=== PATIENT | male | born 1980 | race Caucasian/White ===

== ENCOUNTER 2017-05-08 09:23 | Emergency (ER) | payer MEDICAID ==
--- NOTE | 2017-05-08 10:56 | EDM.PDOC ---
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 this may be contributing to his pain he is really interested pain medication and has not followed up with his primary or his orthopedic surgeon denies any trauma Left Knee Pain Score (Numeric/FACES): 5 - Related Data Allergies Allergy/AdvReac Type Severity Reaction Status Date / Time No Known Allergies Allergy Verified 05/08/17 10:15 Home Meds: Home Meds FLUoxetine [PROzac] 20 mg PO DAILY 05/08/17 [History] Past Medical History Other Musculoskeletal History: L KNEE REPAIR 7 YEARS AGO, CHRONIC PAIN Social & Family History - Tobacco Use Smoking Status *Q: Former Smoker Used Tobacco, but Quit: Yes Month Tobacco Last Used: UNKNOWN, 4 YEARS AGO - Caffeine Use Caffeine Use: Reports: Coffee, Energy Drinks, Soda - Recreational Drug Use Recreational Drug Use: No Review of Systems - Review of Systems Review Of Systems: See Below Musculoskeletal: Reports: Joint Pain ED EXAM, GENERAL - Physical Exam Exam: See Below Free Text/Narrative:: Examination of the knee he does have extensive surgical scars both medial and lateral of the knee I don't appreciate any erythema there is no edema there is no specific joint line tenderness no pain with varus or valgus maneuvers Matias 's is negative Course - Vital Signs Last Recorded V/S: Last Vital Signs Temp 96.3 F 05/08/17 10:16 Pulse 65 05/08/17 10:16 Resp 16 05/08/17 10:16 BP 140/69 05/08/17 10:16 Pulse Ox 95 05/08/17 10:16 Departure - Departure Time of Disposition: 10:55 Disposition: Home, Self-Care 01 Condition: Fair Clinical Impression: Left knee pain Qualifiers: Chronicity: chronic Qualified Code(s): M25.562 - Pain in left knee; G89.29 - Other chronic pain - Discharge Information Forms: ED Department Discharge Additional Instructions: Use ibuprofen for baseline pain control, use hydrocodone for breakthrough pain, Please followup with your primary care provider in 3-5 days if not better, please call return to the emergency department with worsening of symptoms. - Assessment/Plan Plan: Assessment Acuity = acute Site and laterality = left knee pain Etiology = probably secondary to repetitive motion long standing on concrete Manifestations = none Location of injury = Home Lab values = none Plan Prescription given for hydrocodone total #4 tablets from follow-up with his primary care this week for further evaluation Patient was in agreement with the plan all questions were answered, they were instructed to return to the emergency department or call for worsening symptoms. This note was dictated using [employer] voice recognition software please call with any questions.
[2017-05-08 11:10] VITALS: BP 130/79
== END 2017-05-08 11:10 | disposition home or self-care (01) ==
LOC: JP.ED 09:23
DX: G89.29 Other chronic pain (principal); M25.562 Pain in left knee; Z87.891 Personal history of nicotine dependence; Z79.899 Other long term (current) drug therapy; Z98.890 Other specified postprocedural states
CPT/HCPCS: 99283

== ENCOUNTER 2017-07-31 05:58 | Day surgery (SDC) | payer MEDICAID ==
[2017-07-31] MEDS ORDERED: Dextrose 5%-Lactated Ringers 1,000 ML IV SCH (06:30)
[2017-07-31] MEDS ORDERED: fentaNYL 100 MCG/2 ML SDV ONE (06:57)
[2017-07-31] MEDS ORDERED: Propofol 200 MG/20 ML SDV ONE (06:57)
[2017-07-31] MEDS ORDERED: Midazolam 1 MG/ML 2 ML SDV ONE (06:58)
[2017-07-31] MEDS ORDERED: Glycopyrrolate 0.2 MG/ML 2 ML SDV IVPUSH ONE (07:15)
[2017-07-31 08:37] VITALS: BP 114/78
--- NOTE | 2017-08-07 19:06 | OR ---
DATE OF PROCEDURE: 07/31/2017 PREOPERATIVE DIAGNOSIS: Severe gastroesophageal reflux disease. POSTOPERATIVE DIAGNOSES: 1. Small hiatal hernia associated with actively ulcerated gastroesophageal reflux disease. 2. Mild antral gastritis and duodenitis. OPERATIVE PROCEDURES: Esophagogastroduodenoscopy with: 1. Biopsy of esophagogastric junction for histologic evaluation. 2. Biopsies of antrum for CLOtest. ANESTHESIA: IV sedation. INDICATION FOR PROCEDURE: This is a 36-year-old presenting with quite severe gastroesophageal reflux disease, he has daily episodes of quite marked heartburn along with emesis at times with bending over or lying on his back. With this, he has woken up sometimes of some aspiration type events coughing up what would be aspirated esophageal contents. He presently is on omeprazole 40 mg a day for sometime. The plan is to proceed with upper GI endoscopy with biopsies as indicated. Probably he does not have any dysphagia per se with there not being a clinical suggestion of esophageal dysmotility. Potential risks of the procedure including bleeding and perforation were discussed, and the patient wishes to proceed. DETAILS OF PROCEDURE: The patient was taken to the operating room and placed in the left lateral decubitus position. IV sedation was administered, after which the upper GI endoscope was passed orally through the esophagus and into the stomach with retroflexion view of the fundus, thereafter through the pyloric channel and into the junction of the third and fourth portions of the duodenum. Findings included normal hypopharynx, larynx, and upper esophageal sphincter. Esophageal body was grossly unremarkable with there being no dilation present, good peristalsis was evident during the course of the exam. At the EG junction, there was a small hiatal hernia, but essentially wide open esophagogastric junction. This was visualized from the distal esophagus. This was associated with multiple ulcers covered with some fibrinous exudate in the distal esophagus. Apart from that, the stomach had some mild antral gastritis with inflammation extending into the proximal duodenum beyond the duodenal bulb with duodenitis then resolved. At this point, biopsies were obtained from the antrum and sent for CLOtest for H. pylori. Multiple biopsies were obtained from esophagogastric junction, sent for histologic evaluation. No bleeding from the biopsy sites was seen and the procedure then concluded. The patient appeared to have quite severe case of gastroesophageal reflux disease to the point that he has been putting his pulmonary status at risk with the ongoing symptoms and episodes of aspiration. We will see the patient back tomorrow regarding surgical treatment, specifically Mary Jo fundoplication. Raymond Randall MD /[id number]
== END 2017-07-31 08:39 | disposition home or self-care (01) ==
LOC: JP.SDS 05:58
PROVIDERS: ATTEND Surgery
DX: K29.50 Unspecified chronic gastritis without bleeding (principal); K20.9 Esophagitis, unspecified; K44.9 Diaphragmatic hernia without obstruction or gangrene; F41.9 Anxiety disorder, unspecified; E78.00 Pure hypercholesterolemia, unspecified; E66.9 Obesity, unspecified; F32.9 Major depressive disorder, single episode, unspecified; Z87.891 Personal history of nicotine dependence; Z68.30 Body mass index [BMI] 30.0-30.9, adult
CPT/HCPCS: 43239; 87081; 88305; J2250; J2704; J3010; J7042; J3490

== ENCOUNTER 2017-08-02 08:53 | Inpatient (IN) | payer MEDICAID ==
[~2017-08-02 08:53] MED LIST: Dexamethasone 4 MG/ML SDV ONE; Glycopyrrolate 0.2 MG/ML 5 ML MDV ONE; Midazolam 1 MG/ML 2 ML SDV ONE; Neostigmine Methylsulfate 1 MG/ML 5 ML Syringe ONE; Ondansetron 4 MG/2 ML SDV ONE; Propofol 200 MG/20 ML SDV ONE; Rocuronium 50 MG/5 ML Vial ONE; Succinylcholine 200 MG/10 ML MDV ONE
[2017-08-02] MEDS ORDERED: Dextrose 5%-Lactated Ringers 1,000 ML IV SCH (09:30)
[2017-08-02] MEDS ORDERED: ceFAZolin 2 GM in Sodium Chloride 0.9% 50 ML IV ONE (10:30)
[2017-08-02] MEDS ORDERED: Naloxone 0.4 MG/ML SDV IVPUSH PRN (12:13)
[2017-08-02] MEDS ORDERED: HYDROmorphone/Normal Saline 15 MG/30 ML PCA IV PRN (12:13)
[2017-08-02] MEDS ORDERED: fentaNYL 100 MCG/2 ML SDV ONE (13:17)
[2017-08-02] MEDS ORDERED: Ondansetron 4 MG/2 ML SDV IVPUSH PRN (16:41)
[2017-08-02] MEDS: Ibuprofen 400 MG Tab PO SCH ×2 (17:03→21:41)
[2017-08-02] MEDS: Pantoprazole 40 MG Vial IV SCH (17:03)
[2017-08-02] MEDS: Metoclopramide 10 MG/2 ML SDV IVPUSH SCH ×2 (17:03→21:41)
[2017-08-02] MEDS: ceFAZolin 2 GM in Sodium Chloride 0.9% 50 ML IV SCH (19:18)
[2017-08-02] MEDS: Dextrose 5%-Lactated Ringers 1,000 ML IV SCH (20:29)
[2017-08-03] MEDS: Dextrose 5%-Lactated Ringers 1,000 ML IV SCH ×2 (02:04→09:29)
[2017-08-03] MEDS ORDERED: diphenhydrAMINE 50 MG/ML SDV IVPUSH PRN (02:27)
[2017-08-03] MEDS ORDERED: diphenhydrAMINE 25 MG Cap PO PRN (02:28)
[2017-08-03] MEDS: Metoclopramide 10 MG/2 ML SDV IVPUSH SCH (04:22)
[2017-08-03] MEDS: ceFAZolin 2 GM in Sodium Chloride 0.9% 50 ML IV SCH ×2 (04:22→12:45)
[2017-08-03] MEDS: Ibuprofen 400 MG Tab PO SCH (05:41)
[2017-08-03] MEDS: FLUoxetine 20 MG Cap PO SCH (09:04)
[2017-08-03] MEDS ORDERED: Ondansetron 4 MG Tab.DIS PO PRN (09:24)
[2017-08-03] MEDS ORDERED: Acetaminophen/oxyCODONE 325-5 MG Tab PO PRN (09:32)
[2017-08-03] MEDS ORDERED: Ibuprofen 200 MG Tab PO SCH (10:00)
--- NOTE | 2017-08-03 12:25 | PN ---
DATE OF SERVICE: 08/03/2017 SUBJECTIVE: Luke is postop day #1 following a laparoscopic Mary Jo fundoplication. He is tolerating the clear liquid diet. Vital signs have been stable and he has been up ambulating. OBJECTIVE: GENERAL: Luke Kuo is a 36-year-old male. He is alert and oriented. VITAL SIGNS: TPR 97.9, 59, 15. Blood pressure 112/52. HEENT: Negative. NECK: Supple. HEART: Regular rate and rhythm. LUNGS: Clear. ABDOMEN: Dressings dry and intact. Abdominal binder is on. EXTREMITIES: Without peripheral edema. ASSESSMENT: Laparoscopic Mary Jo fundoplication. PLAN: 1. Full liquid diet. 2. Discontinue DISABILITY MANAGER and continuous pulse ox. 3. Discontinue ibuprofen. 4. Percocet 5/325 mg. 5. Decrease IV to 100 mL per hour. 6. Dressing off, may shower. 7. Dietary consult. 8. We will evaluate p.r.n. or in a.m. Elizabeth Fuentes PA-C /[id number]
[2017-08-03] MEDS: traMADol 50 MG Tab PO PRN ×3 (12:45→19:51)
[2017-08-03] MEDS: Pantoprazole 40 MG Vial IV SCH (16:02)
[2017-08-04] MEDS: traMADol 50 MG Tab PO PRN (00:56)
[2017-08-04 07:43] VITALS: BP 136/77
[2017-08-04] MEDS: FLUoxetine 20 MG Cap PO SCH (09:08)
[2017-08-04] MEDS ORDERED: Magnesium Hydroxide 400 MG/5 ML Susp 30 ML Cup PO ONE (09:30)
[2017-08-04] MEDS ORDERED: Magnesium Hydroxide 400 MG/5 ML Susp 30 ML Cup PO PRN (09:34)
--- NOTE | 2017-08-04 16:37 | DISCH ---
FINAL DIAGNOSES: 1. Gastroesophageal reflux disease refractory to medical management associated with large paraesophageal diaphragmatic hernia. 2. Mediastinal lipoma. 3. Soft tissue mass adjacent to the esophagogastric junction. 4. History of anxiety and depression. 5. History of hyperlipidemia. 6. History of alcohol dependence. 7. History of opioid dependence. 8. Attention-deficit hyperactivity disorder with adjustment disorder. OPERATIVE PROCEDURES: Done on 08/02/2017; 1. Diagnostic laparoscopy with repair of paraesophageal diaphragmatic hernia with mesh and accompanying Mary Jo fundoplication. 2. Excision of mediastinal lipoma. 3. Excision of soft tissue mass adjacent to esophagogastric junction. HOSPITAL COURSE: This is a 36-year-old presenting with gastroesophageal reflux disease refractory to medical management. He had gross emesis frequently during the day despite ongoing omeprazole use. After the preoperative evaluation and discussion, the patient came for Mary Jo fundoplication which was done on the date of admission along with repair of the associated paraesophageal diaphragmatic hernia with mesh and excision of the mediastinal lipoma status post soft tissue mass that may be enlarged lymph node adjacent to esophagogastric junction which was also excised. Postoperatively, he has been little bit distended, but otherwise passing gas, has not moved his bowels as of yet. He will be discharged home with full-liquid diet for 2 weeks. We will give him some of milk of magnesia today as well as some doses to take home. DISCHARGE MEDICATIONS: Home medications plus tramadol 50-100 mg q.4 hours p.r.n. pain, #50 being written. He will be also instructed to stop his omeprazole in 1 week. He will be following up with Dr. Randall at [facility] on 08/15/2017.
--- NOTE | 2017-08-08 14:03 | OR ---
DATE OF PROCEDURE: 08/02/2017 PREOPERATIVE DIAGNOSIS: Gastroesophageal reflux disease refractory to medical management. POSTOPERATIVE DIAGNOSES: 1. Paraesophageal diaphragmatic hernia associated with gastroesophageal reflux disease refractory to medical management. 2. Mediastinal lipoma. 3. Soft tissue mass adjacent to the gastroesophageal junction. OPERATIVE PROCEDURES: Diagnostic laparoscopy with: 1. Repair of paraesophageal diaphragmatic hernia with Mary Jo fundoplication with mesh reinforcement (78282). 2. Excision of mediastinal lipoma (76116). 3. Excision of soft-tissue mass adjacent to the esophagogastric junction (15887). ANESTHESIA: General. MEASUREMENT AND SENSING TECHNICIAN: Elizabeth Fuentes PA-C and WADE Higgins. INDICATION FOR PROCEDURE: This is a 36-year-old presenting with progressively worsening gastroesophageal reflux symptoms. After preoperative evaluation and discussion, he wished to proceed with a Mary Jo fundoplication. Potential risks of the procedure including bleeding, infection, injury to the underlying viscera, problems with fundoplication, such as dysphagia, gas-bloat syndrome, disorders of gastric emptying rate, as well as possible incomplete relief of reflux symptoms were gone over, possibility of sometimes needing to revise these for persistent dysphasia was likewise reviewed, and the remote possibility of cardiopulmonary, septic, or hemorrhagic complications leading to were also gone over, and the patient wishes to proceed. DETAILS OF PROCEDURE: The patient was taken to the operating room and placed in a supine position. After general endotracheal anesthesia was induced, she was converted to a lithotomy position. Mccall catheter was inserted, after which the abdomen was prepped and draped. At 15 cm inferior, 5 cm left of xiphoid process, a transverse incision was made and the peritoneal cavity entered under direct vision with an Optiview trocar and inflated to 15 mmHg pressure with CO2. Laparoscope was then reinserted. No underlying trocar insertion site injuries were seen. Following this, 4 additional trocars were placed across the upper and mid abdomen, and general exploration was undertaken. Upon elevation of the liver, the patient was noted to have a significant paraesophageal component of the diaphragmatic hernia. Hernia was overall fairly large and contained some perigastric fat with a portion of the fundus and a tongue of omentum extending into the plane anterior to the course of the esophagus. This was reflected downward and the peritoneum overlying it incised and from there the peritoneum incised down along the crura on each side. Care was taken to avoid injury to the nearby vagus nerves. This then allowed dissection of the esophagus away from the crura on each side and then through the retroesophageal region. A Northridge drain was placed around that area, and this facilitated dissection such that roughly 4 to 5 cm of intra-abdominal esophageal length was achieved. During the course of the dissection, two additional findings were noted that would be a mediastinal lipoma, which was present posterior to the esophagus within the mediastinum. This was excised in 2 segments and then there was also a soft tissue mass, which may have been an enlarged lymph node to the left of the esophagogastric junction. This measured around 2.5 to 3 cm in size. Both of these were excised and sent as separate pathologic specimens. After this point, the crural repair was accomplished with some 0 Ethibond sutures reinforced with PTFE pledgets. The defect was large enough that it was felt a mesh-type replacement would be warranted. Phasix ST mesh was then cut such that it lay across crural repair posteriorly then roughly skilled nursing up along the sides of the esophagus and overlying the adjacent diaphragm. This was positioned with some titanium tacking screws. Beginning in the upper greater curvature of the body of the stomach, the omentum was divided off with Harmonic scalpel. This dissection then continued upward, finding the short gastric vessels including the highest and posterior short gastric vessels. This allowed satisfactory mobility of the fundus, which was retrieved through a retroesophageal window. The healthcare social worker then passed a guidewire orally through the length of the esophagus into the stomach. Over this, a 54-Togolese Savary dilator was positioned. A 3-stitch 2 cm fundoplication was then accomplished with 0 Ethibond sutures reinforced with PTFE pledgets. The fundoplication was then also tacked to the overlying diaphragm both on the right and left sides with 0 Ethibond sutures and pledgets as well. At that point, the dilator and wire were removed and the fundoplication was found to be satisfactorily loose and overall appeared to be well positioned. The trocars were sequentially removed with the fascia at the 12 mm sites closed with 0 Vicryl stitch and the skin with 4-0 Vicryl stitch in each of the locations. The patient was taken to the recovery room in satisfactory condition. There were no evident complications. Physician addictions counselor assistant, Elizabeth Fuentes, played an essential role in assisting in this case helping to position the patient, retract structures as needed, as well as suturing and cutting sutures when indicated. Her presence improved the patient's safety and decreased the operative time. Raymond Randall MD /[id number]
== END 2017-08-04 10:17 | disposition home or self-care (01) | DRG 328 ==
LOC: JP.SDS 08:53 → JP.SDSSCHI 08:53 → EDSTATUS 10:30 → JP.2SS 13:20
PROVIDERS: ADMIT Surgery; ATTEND Surgery
PROC: 0DV44ZZ Restriction of Esophagogastric Junction, Percutaneous Endoscopic Approach (ICD-10-PCS; principal; 2017-08-02)
PROC: 0BUT4JZ Supplement Diaphragm with Synthetic Substitute, Percutaneous Endoscopic Approach (ICD-10-PCS; 2017-08-02)
PROC: 0WBC4ZX Excision of Mediastinum, Percutaneous Endoscopic Approach, Diagnostic (ICD-10-PCS; 2017-08-02)
DX: K21.9 Gastro-esophageal reflux disease without esophagitis (principal); K44.9 Diaphragmatic hernia without obstruction or gangrene; F32.9 Major depressive disorder, single episode, unspecified; F11.21 Opioid dependence, in remission; E78.5 Hyperlipidemia, unspecified; D17.4 Benign lipomatous neoplasm of intrathoracic organs; F10.21 Alcohol dependence, in remission; F41.9 Anxiety disorder, unspecified
CPT/HCPCS: 36415; 80048; 85027; 88304; 88305; A9270-GY; C1781; C9113; J0330; J0690; J1100; J1170; J1200; J2250; J2405; J2704; J2710; J2765; J3010; J7042; J7050

== ENCOUNTER 2017-09-13 14:43 | Inpatient (IN) | payer MEDICAID ==
[2017-09-13] MEDS ORDERED: Ondansetron 4 MG/2 ML SDV IVPUSH PRN (16:27)
[2017-09-13] MEDS: Dextrose 5%-Lactated Ringers 1,000 ML IV SCH ×2 (16:46→23:14)
[2017-09-13] MEDS: Metoclopramide 10 MG/2 ML SDV IVPUSH SCH ×2 (17:08→23:59)
[2017-09-13] MEDS: Pantoprazole 40 MG Vial IV SCH (17:08)
[2017-09-13] MEDS ORDERED: Phenol/Sodium Phenolate Mouthwash 180 ML Bottle PO PRN (19:37)
[2017-09-13] MEDS ORDERED: Morphine PF 150 MG/30 ML PCA Syringe IV PRN (19:41)
[2017-09-13] MEDS ORDERED: LORazepam 2 MG/ML MDV IVPUSH PRN (19:42)
[2017-09-13] MEDS ORDERED: Naloxone 0.4 MG/ML SDV IVPUSH PRN (20:29)
--- NOTE | 2017-09-13 21:08 | PCM.HP ---
H&P History of Present Illness - General Date of Service: 09/13/17 Admit Problem/Dx: Admission Diagnosis/Problem Admission Diagnosis/Problem Partial small bowel obstruction Source of Information: Patient History Limitations: Reports: No Limitations - History of Present Illness Initial Comments - Free Text/Narative: Luke had a Lap Mary Jo Fundiplication on 08/02/17. He states he has dysphagia, heartburn, gastric reflux, nausea, vomiting and diarrhea for 3 weeks. He also reports a decrease in appetite. Luke reports a tight pressure like pain in his left upper and middle abdomen. He states he has no appetite, sleeps a lot and doesn't eat. When he throws up he states he doesn't throw up food it is usually foamy spit. Onset of Symptoms: Reports: Gradual Duration of Symptoms: Reports: Week(s): (3) Location: Reports: Abdomen Abdominal Pain Score (Numeric/FACES): 4 - Related Data Allergies/Adverse Reactions: Allergies Allergy/AdvReac Type Severity Reaction Status Date / Time No Known Allergies Allergy Verified 07/31/17 06:12 Home Medications: Home Meds FLUoxetine [PROzac] 20 mg PO DAILY 05/08/17 [History] Simvastatin [Zocor] 40 mg PO BEDTIME 07/30/17 [History] Acetaminophen [Tylenol] 650 mg PO Q4HR PRN 08/02/17 [History] Magnesium Hydroxide [Milk of Magnesia] 30 ml PO DAILY PRN #90 ml 08/04/17 [Rx] traMADol [Ultram] 50 mg PO Q6H PRN #50 tab 08/04/17 [Rx] Past Medical History HEENT History: Reports: Impaired Vision Cardiovascular History: Reports: Blood Clots/VTE/DVT, High Cholesterol Respiratory History: Reports: None Gastrointestinal History: Reports: Chronic Diarrhea Genitourinary History: Reports: None Musculoskeletal History: Reports: Fracture Other Musculoskeletal History: L KNEE REPAIR 7 YEARS AGO, CHRONIC PAIN Neurological History: Reports: Concussion Psychiatric History: Reports: ADD, Anxiety, Bipolar, Depression, Mood Swings, Schizophrenia Endocrine/Metabolic History: Reports: Obesity/BMI 30+ Hematologic History: Reports: None Immunologic History: Reports: None Oncologic (Cancer) History: Reports: None Dermatologic History: Reports: None - Infectious Disease History Infectious Disease History: Reports: Chicken Pox - Past Surgical History Head Surgeries/Procedures: Reports: None HEENT Surgical History: Reports: None Cardiovascular Surgical History: Reports: None Respiratory Surgical History: Reports: None GI Surgical History: Reports: None Endocrine Surgical History: Reports: None Neurological Surgical History: Reports: None Musculoskeletal Surgical History: Reports: Other (See Below) Other Musculoskeletal Surgeries/Procedures:: pins in and out left knee Oncologic Surgical History: Reports: None Dermatological Surgical History: Reports: None Social & Family History - Family History Family Medical History: Noncontributory - Tobacco Use Smoking Status *Q: Former Smoker Years of Tobacco use: 10 Packs/Tins Daily: 0.5 Used Tobacco, but Quit: No Month Tobacco Last Used: 10/2012 Second Hand Smoke Exposure: Yes - Caffeine Use Caffeine Use: Reports: Coffee, Soda - Alcohol Use Days Per Week of Alcohol Use: 3 Number of Drinks Per Day: 3 Total Drinks Per Week: 9 Date of Last Drink: 09/12/17 Time of Last Drink: 22:00 - Recreational Drug Use Recreational Drug Use: No H&P Review of Systems - Review of Systems: Review Of Systems: See Below General: Reports: Weakness, Fatigue, Decreased Appetite HEENT: Reports: No Symptoms Pulmonary: Reports: No Symptoms Cardiovascular: Reports: No Symptoms Gastrointestinal: Reports: Abdominal Pain, Diarrhea, Decreased Appetite, Difficulty Swallowing, Nausea Genitourinary: Reports: No Symptoms Musculoskeletal: Reports: No Symptoms Skin: Reports: No Symptoms Psychiatric: Reports: No Symptoms Neurological: Reports: No Symptoms Hematologic/Lymphatic: Reports: No Symptoms Immunologic: Reports: No Symptoms Exam - Exam Exam: See Below - Vital Signs Vital Signs: Last Vital Signs Temp 98.4 F 09/13/17 19:47 Pulse 59 L 09/13/17 19:47 Resp 16 09/13/17 19:47 BP 121/74 09/13/17 19:47 Pulse Ox 97 09/13/17 19:47 Weight: 218 lb - Exam Quality Assessment: DVT Prophylaxis General: Alert, Oriented, Cooperative, Mild Distress HEENT: PERRLA Neck: Supple Lungs: Clear to Auscultation, Normal Respiratory Effort Cardiovascular: Regular Rate, Regular Rhythm GI/Abdominal Exam: Soft, Tender (generalized in all 4 quadrants with most of the tenderness left mid and upper quadrants) (Male) Exam: Deferred Rectal (Males) Exam: Deferred Back Exam: Normal Inspection, Full Range of Motion Extremities: Normal Range of Motion, Pedal Edema Skin: Warm, Dry, Intact Neurological: Cranial Nerves Intact, Reflexes Equal Bilateral Neuro Extensive - Mental Status: Alert, Oriented x3, Normal Mood/Affect Neuro Extensive - Motor, Sensory, Reflexes: CN II-XII Intact Psychiatric: Alert, Normal Affect, Normal Mood *Q Meaningful Use (ADM) - VTE *Q VTE Criteria *Q: - Stroke *Q Stroke Criteria *Q: - AMI *Q AMI Criteria *Q: - Problem List (1) Partial small bowel obstruction SNOMED Code(s): 632159978 ICD Code: K56.600 - PARTIAL INTESTINAL OBSTRUCTION, UNSPECIFIED TO CAUSE Status: Acute Current Visit: Yes Problem List Initiated/Reviewed/Updated: Yes Orders Last 24hrs: Active Orders 24 hr Category Date Time Status Admission Diagnosis [ADT] Routine ADT 09/13/17 15:00 Ordered Activity as Tolerated [RC] .Routine Care 09/13/17 16:11 Active Communication Order [RC] STAT Care 09/13/17 20:29 Active Gastrointestinal Tube Mgmt [RC] ASDIRECTED Care 09/13/17 16:14 Active Intake and Output [RC] ASDIRECTED Care 09/13/17 16:16 Active Notify Provider [RC] PRN Care 09/13/17 20:29 Active SNOWBOARDER Record [RC] PER UNIT ROUTINE Care 09/13/17 20:29 Active Pulse Oximetry [RC] CONTINUOUS Care 09/13/17 20:29 Active Vital Signs [RC] Q4H Care 09/13/17 16:12 Active Nothing Per Oral Diet [DIET] Diet 09/13/17 Dinner Active Abdomen 1V Upright [CR] Urgent Exams 09/13/17 19:44 Taken Abdomen 2V AP Flat Upright [CR] DAILY Exams 09/14/17 04:00 Ordered Abdomen 2V AP Flat Upright [CR] DAILY Exams 09/15/17 04:00 Ordered Abdomen 2V AP Flat Upright [CR] DAILY Exams 09/16/17 04:00 Ordered Abdomen 2V AP Flat Upright [CR] DAILY Exams 09/17/17 04:00 Ordered CBC W/O DIFF,HEMOGRAM [HEME] Routine Lab 09/14/17 04:00 Ordered CLOSTRIDIUM DIFFICILE BY PCR [RM] Routine Lab 09/13/17 16:24 Uncollected COMPREHENSIVE METABOLIC PN,CMP [CHEM] Routine Lab 09/14/17 04:00 Ordered MAGNESIUM [CHEM] Routine Lab 09/14/17 04:00 Ordered PHOSPHORUS [CHEM] Routine Lab 09/14/17 04:00 Ordered Dextrose 5%-Lactated Ringers 1,000 ml Med 09/13/17 16:30 Active IV ASDIRECTED LORazepam [Ativan] Med 09/13/17 19:42 Active 0.5 - 1 mg IVPUSH Q2H PRN Metoclopramide [Reglan] Med 09/13/17 18:00 Active 10 mg IVPUSH Q6H Morphine PF [Morphine SNOWBOARDER 150 MG in 30 ML] Med 09/13/17 19:41 Active 150 mg IV ASDIRECTED PRN Naloxone [Narcan] Med 09/13/17 20:29 Active 0.4 mg IVPUSH Q2M PRN Ondansetron [Zofran] Med 09/13/17 16:27 Active 4 mg IVPUSH Q4H PRN Pantoprazole [ProTONIX IV] Med 09/13/17 18:00 Active 40 mg IV Q12H Phenol/Sodium Phenolate [Phenaseptic Liquid] Med 09/13/17 19:37 Active 0 ml PO Q2H PRN Medication Discontinuation Instructions [OM.PC] Stat Oth 09/13/17 20:29 Ordered NG [Nasogastric Orogastric Tube Insertion] [OM.PC] Oth 09/13/17 16:13 Ordered Routine SCD [Sequential Compression Device] [OM.PC] Routine Oth 09/13/17 16:19 Ordered Code Status [Resuscitation Status] Routine Resus Stat 09/13/17 16:09 Ordered Medication Orders Dextrose/Lactated Ringer's (Dextrose 5%-Lactated Ringers) 1,000 mls @ 150 mls/ hr IV ASDIRECTED RICK Last Admin: 09/13/17 16:46 Dose: 150 mls/hr Lorazepam (Ativan) 0.5 - 1 mg IVPUSH Q2H PRN PRN Reason: Nausea/Vomiting Last Admin: 09/13/17 20:22 Dose: 1 mg Metoclopramide HCl (Reglan) 10 mg IVPUSH Q6H RICK Last Admin: 09/13/17 17:08 Dose: 10 mg Morphine Sulfate (Morphine [facility] 150 Mg In 30 Ml) 150 mg IV ASDIRECTED PRN; Protocol PRN Reason: Pain Last Admin: 09/13/17 20:23 Dose: 150 mg Naloxone HCl (Narcan) 0.4 mg IVPUSH Q2M PRN PRN Reason: Respiratory Distress Ondansetron HCl (Zofran) 4 mg IVPUSH Q4H PRN PRN Reason: Nausea Last Admin: 09/13/17 18:31 Dose: 4 mg Pantoprazole Sodium (Protonix Iv) 40 mg IV Q12H RICK Last Admin: 09/13/17 17:08 Dose: 40 mg Phenol (Phenaseptic Liquid) 0 ml PO Q2H PRN PRN Reason: Sore Throat Assessment: Partial Small Bowel Obstruction Dehydration Nausea and Vomiting SP Laparoscopic Mary Jo Fundiplication Plan: Admit to Inpatient [facility] Plan of admission 3 nights and 3 days. Elizabeth Castillo 09/13/17
[2017-09-14] MEDS: Dextrose 5%-Lactated Ringers 1,000 ML IV SCH ×3 (05:42→19:35)
[2017-09-14] MEDS: Pantoprazole 40 MG Vial IV SCH ×2 (05:42→17:19)
[2017-09-14] MEDS: Metoclopramide 10 MG/2 ML SDV IVPUSH SCH ×3 (05:42→17:20)
[2017-09-14] MEDS ORDERED: Naloxone 0.4 MG/ML SDV IV PRN (07:20)
[2017-09-14] MEDS ORDERED: Morphine PF 150 MG/30 ML PCA Syringe IV PRN (08:00)
[2017-09-14] MEDS ORDERED: Iohexol 300 MG/ML 30 ML Bottle PO ONE (08:07)
[2017-09-14] MEDS ORDERED: Sodium Chloride 0.9% 10 ML Syringe FLUSH PRN (08:19)
[2017-09-14] MEDS ORDERED: Iopamidol 612 MG/ML 150 ML Bottle IV PRN (08:19)
--- NOTE | 2017-09-14 08:39 | CR ---
NG tube with the distal tip in the cardia of the stomach. Side-port is within the stomach. There is n o longer gaseous distention of the stomach.
--- NOTE | 2017-09-14 08:39 | CR ---
NG tube within the stomach. There is no gaseous distention. Scattered bowel gas within the large and small bowel. No evidence for dilatation.
[2017-09-14] MEDS ORDERED: Iohexol 647 MG/ML 10 ML SDV PO ONE (08:45)
--- NOTE | 2017-09-14 08:49 | PN ---
DATE OF SERVICE: 09/14/2017 SUBJECTIVE: Luke was admitted yesterday for partial small bowel obstruction versus gastroparesis SP lap Mary Jo fundoplication on 08/02/2017. He had the NG placed with 700 mL returned. He reports he is feeling better. He did have 1 bout of nausea, NG was repositioned and the nausea resolved. Vital signs have been stable. 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 REVIEW OF SYSTEMS: Remainder of review of systems negative for any pertinent positives and negatives. OBJECTIVE: GENERAL: Luke Kuo is a 37-year-old male. He is alert and orientated. NG in place. VITAL SIGNS: TPR is 97.4, 54, 16. Blood pressure 130/59. HEENT: Negative. NECK: Supple. HEART: Regular rate and rhythm. LUNGS: Clear. ABDOMEN: Soft, nontender. EXTREMITIES: Without peripheral edema. ASSESSMENT: Partial small bowel obstruction. PLAN: 1. Check CT of abdomen and pelvis with 100 mL of water-soluble contrast via NG and IV contrast now. 2. Call Raymond Randall M.D., with results. 3. Erythromycin 125 mg through NG tube q.i.d. 4. Good pulmonary toilet. 5. We will evaluate p.r.n. or in the a.m. Elizabeth Fuentes PA-C /[id number]
--- NOTE | 2017-09-14 09:15 | CT ---
CT abdomen and pelvis Total DLP 776. Findings: Lung bases are clear. Postsurgical change Mary Jo fundoplication. No focal fluid collection. NG tube with distal tip in the fundus of the stomach. No appreciable hiatal hernia. Adrenal glands a re unremarkable. Gallbladder within normal limits. Tiny hypodensity right kidney is too small to perlita acterize. Kidneys enhance normally. No dilated loops of small bowel. No dilated loops of large bowel. Bladder is unremarkable. No enlarged adenopathy. Appendix within normal limits. No acute osseous abn ormality. Impression: 1. Postsurgical changes Mary Jo fundoplication no focal fluid collection. No hiatal hernia.
[2017-09-14] MEDS ORDERED: methylPREDNISolone Sodium Succinate 125 MG/2 ML SDV IVPUSH ONE (10:30)
[2017-09-14] MEDS: Erythromycin Ethylsuccinate Susp 400 MG/5 ML 100 ML Bottle NGTUBE SCH ×3 (10:37→19:35)
[2017-09-14] MEDS: methylPREDNISolone Sodium Succinate 125 MG/2 ML SDV IVPUSH SCH (21:42)
[2017-09-15] MEDS: Metoclopramide 10 MG/2 ML SDV IVPUSH SCH ×2 (00:51→07:16)
[2017-09-15] MEDS: Erythromycin Ethylsuccinate Susp 400 MG/5 ML 100 ML Bottle NGTUBE SCH ×4 (01:00→21:04)
[2017-09-15] MEDS: Dextrose 5%-Lactated Ringers 1,000 ML IV SCH ×2 (02:14→09:10)
[2017-09-15] MEDS: Pantoprazole 40 MG Vial IV SCH ×2 (05:39→17:32)
[2017-09-15] MEDS: methylPREDNISolone Sodium Succinate 125 MG/2 ML SDV IVPUSH SCH ×2 (09:33→21:04)
[2017-09-15] MEDS: FLUoxetine 20 MG Cap PO SCH (09:33)
[2017-09-15] MEDS: traMADol 50 MG Tab PO PRN ×2 (12:00→18:02)
[2017-09-15] MEDS: Metoclopramide 10 MG Tab PO SCH ×2 (12:11→17:24)
[2017-09-15] MEDS ORDERED: Zolpidem 5 MG Tab PO PRN (18:15)
[2017-09-16] MEDS: Metoclopramide 10 MG Tab PO SCH ×2 (00:37→06:07)
[2017-09-16] MEDS: Erythromycin Ethylsuccinate Susp 400 MG/5 ML 100 ML Bottle NGTUBE SCH ×2 (03:56→07:38)
[2017-09-16] MEDS: Pantoprazole 40 MG Vial IV SCH (06:10)
[2017-09-16 07:27] VITALS: BP 110/54
[2017-09-16] MEDS: methylPREDNISolone Sodium Succinate 125 MG/2 ML SDV IVPUSH SCH (09:08)
[2017-09-16] MEDS: FLUoxetine 20 MG Cap PO SCH (09:08)
--- NOTE | 2017-09-16 11:31 | PN ---
DATE OF SERVICE: 09/15/2017 The patient has been afebrile with stable vital signs. NG output has been relatively scant and I think we will get that out today. We will try a full-liquid diet. We will switch the Reglan over to oral form, in addition to the oral erythromycin, and if he does okay overnight, I will let him be discharged home tomorrow. We will check an abdominal x-ray tomorrow just to see if there is much in the way of gastric distention. Raymond Randall MD /[id number]
--- NOTE | 2017-09-17 11:06 | CR ---
Abdomen 2V AP Flat Upright HISTORY: Small bowel obstruction. COMPARISON: CT scan 09/14/2017. FINDINGS: NG tube just reaches the proximal stomach. No dilated loops of small bowel or large bowel s een.
--- NOTE | 2017-09-17 11:07 | CR ---
Abdomen 2V AP Flat Upright HISTORY: Abdominal pain. COMPARISON: 09/15/2017. FINDINGS: NG tube has been removed. No evidence for bowel obstruction or free air.
--- NOTE | 2017-09-17 11:22 | DISCH ---
FINAL DIAGNOSES: 1. Impaired gastric emptying status post Mary Jo fundoplication. 2. Chronic knee pain. 3. History of depression. OPERATIVE PROCEDURES: None. HOSPITAL COURSE: This is a 37-year-old status post a Mary Jo fundoplication on 08/02/2017. He had been doing fairly well and then developed problems with abdominal bloating and nausea. He was unable to vomit. A nasogastric tube was placed, which resulted in prompt relief of the symptoms. The patient was then started on erythromycin and Reglan, and then IV Solu-Medrol to decrease some edema at the recent Mary Jo fundoplication as well as augmenting gastric emptying. With this, the NG tube was then removed yesterday. He was started on a full liquid diet and then he tolerated that well. He will be discharged home at this point with instructions to use a soft solid diet, backing down on liquids if he is still having problems with dysphagia. Otherwise, we will send him home with 3 additional Ultram, which he has been taking intermittently for pain; erythromycin 125 mg p.o. t.i.d., and Reglan 10 mg p.o. t.i.d. both #90, with refill x1, and to be taken before meals; and then Medrol Dosepak to start tomorrow. The patient will be starting work at a [employer] in [place] a week from Sunday, so we will see him this coming Sunday to make sure we are going okay with regard to his overall status. The followup appointment will be with Dr. Randall at [facility] on 09/19/2017, at 9:30 a.m.
== END 2017-09-16 11:00 | disposition home or self-care (01) | DRG 392 ==
LOC: JP.2SS 14:43
PROVIDERS: ADMIT Surgery; ATTEND Surgery
DX: K30 Functional dyspepsia (principal); Z98.890 Other specified postprocedural states; E86.0 Dehydration; H54.7 Unspecified visual loss; Z86.718 Personal history of other venous thrombosis and embolism; E78.00 Pure hypercholesterolemia, unspecified; Z87.891 Personal history of nicotine dependence; M25.569 Pain in unspecified knee; Z87.898 Personal history of other specified conditions
CPT/HCPCS: 36415; 74000; 74000-26; 74020; 74020-26; 74177; 74177-26; 80053; 83735; 84100; 85027; 94762; A9270-GY; C9113; J2060; J2270; J2405; J2765; J2930; J7030; J7042; J7050

== ENCOUNTER 2017-12-02 09:43 | Emergency (ER) | payer MEDICAID ==
[2017-12-02 10:06] VITALS: BP 132/81
[2017-12-02] MEDS ORDERED: Ondansetron 4 MG Tab.DIS PO ONE (10:23)
[2017-12-02] MEDS ORDERED: Bisacodyl 10 MG Supp RECTAL ONE (10:23)
--- NOTE | 2017-12-02 10:29 | EDM.PDOC ---
ED HPI GENERAL MEDICAL PROBLEM - General Chief Complaint: Gastrointestinal Problem Stated Complaint: GAGGING Time Seen by Provider: 12/02/17 10:15 Source of Information: Reports: Patient, Old Records, RN History Limitations: Reports: No Limitations - History of Present Illness INITIAL COMMENTS - FREE TEXT/NARRATIVE: 37 yo male comes to the ER with constipation and mild nausea for a couple weeks. Eating and drinking normally. No fever. Last BM about 3 days ago. Has not contacted his provider about this. Has a pHx of a lap Mary Jo. Onset: Gradual Onset Date: 11/21/17 Duration: Week(s):, Waxing/Waning Location: Reports: Abdomen Quality: Reports: Sharp (intermittent, mainly on the sides of his abdomen) Severity: Moderate Improves with: Reports: Other (unknown) Worsens with: Reports: Other (uncertain) Context: Reports: Other (constipation for a few weeks) Associated Symptoms: Reports: Nausea/Vomiting (no vomiting). 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 (see below) (none) Right Upper Abdominal Pain Score (Numeric/FACES): 3 - Related Data Allergies Allergy/AdvReac Type Severity Reaction Status Date / Time No Known Allergies Allergy Verified 12/02/17 10:11 Home Meds: Home Meds FLUoxetine [PROzac] 20 mg PO DAILY 05/08/17 [History] Acetaminophen [Tylenol] 650 mg PO Q4HR PRN 08/02/17 [History] Magnesium Hydroxide [Milk of Magnesia] 30 ml PO DAILY PRN #90 ml 08/04/17 [Rx] Past Medical History HEENT History: Reports: Impaired Vision Cardiovascular History: Reports: Blood Clots/VTE/DVT, High Cholesterol Respiratory History: Reports: None Gastrointestinal History: Reports: Chronic Diarrhea Genitourinary History: Reports: None Musculoskeletal History: Reports: Fracture Other Musculoskeletal History: L KNEE REPAIR 7 YEARS AGO, CHRONIC PAIN Neurological History: Reports: Concussion Psychiatric History: Reports: ADD, Anxiety, Bipolar, Depression, Mood Swings, Schizophrenia Endocrine/Metabolic History: Reports: Obesity/BMI 30+ Hematologic History: Reports: None Immunologic History: Reports: None Oncologic (Cancer) History: Reports: None Dermatologic History: Reports: None - Infectious Disease History Infectious Disease History: Reports: Chicken Pox - Past Surgical History Head Surgeries/Procedures: Reports: None HEENT Surgical History: Reports: None Cardiovascular Surgical History: Reports: None Respiratory Surgical History: Reports: None GI Surgical History: Reports: None, Bariatric Procedure Endocrine Surgical History: Reports: None Neurological Surgical History: Reports: None Musculoskeletal Surgical History: Reports: Other (See Below) Other Musculoskeletal Surgeries/Procedures:: pins in and out left knee Oncologic Surgical History: Reports: None Dermatological Surgical History: Reports: None Social & Family History - Family History Family Medical History: Noncontributory - Tobacco Use Smoking Status *Q: Unknown Ever Smoked Years of Tobacco use: 10 Packs/Tins Daily: 0.5 Used Tobacco, but Quit: No Month Tobacco Last Used: 10/2012 Second Hand Smoke Exposure: Yes - Caffeine Use Caffeine Use: Reports: Coffee, Soda - Alcohol Use Days Per Week of Alcohol Use: 3 Number of Drinks Per Day: 3 Total Drinks Per Week: 9 - Recreational Drug Use Recreational Drug Use: No ED ROS GENERAL - Review of Systems Review Of Systems: See Below Constitutional: Reports: No Symptoms HEENT: Reports: No Symptoms Respiratory: Reports: No Symptoms Cardiovascular: Reports: No Symptoms Endocrine: Reports: No Symptoms GI/Abdominal: Reports: No Symptoms : Reports: No Symptoms Musculoskeletal: Reports: No Symptoms Skin: Reports: No Symptoms ED EXAM, GI/ABD - Physical Exam Exam: See Below Exam Limited By: No Limitations General Appearance: Alert, WD/WN, No Apparent Distress Eyes: Bilateral: Normal Appearance, EOMI Ears: Normal External Exam, Normal Canal, Hearing Grossly Normal, Normal TMs Nose: Normal Inspection, Normal Mucosa, No Blood Throat/Mouth: Normal Inspection, Normal Lips, Normal Teeth, Normal Oropharynx, Normal Voice, No Airway Compromise Head: Atraumatic, Normocephalic Neck: Normal Inspection Respiratory/Chest: No Respiratory Distress, Lungs Clear, Normal Breath Sounds, No Accessory Muscle Use Cardiovascular: Regular Rate, Rhythm GI/Abdominal Exam: Normal Bowel Sounds, Soft, Non-Tender, No Distention Back Exam: Normal Inspection. No: CVA Tenderness (R), CVA Tenderness (L) Extremities: Normal Inspection, Normal Range of Motion, Non-Tender, No Pedal Edema Neurological: Alert, Oriented, CN II-XII Intact, Normal Cognition, No Motor/ Sensory Deficits Psychiatric: Normal Affect, Normal Mood Skin Exam: Warm, Dry, Intact, Normal Color, No Rash Lymphatic: No Adenopathy Course - Vital Signs Text/Narrative:: Had a large BM after the supp and now feels better. Last Recorded V/S: Last Vital Signs Temp 36.5 C 12/02/17 10:08 Pulse 72 12/02/17 10:08 Resp 16 12/02/17 10:08 BP 132/81 12/02/17 10:08 Pulse Ox 98 12/02/17 10:08 - Orders/Labs/Meds Meds: Medications Discontinued Medications Generic Name Dose Route Start Last Admin Trade Name Chari PRN Reason Stop Dose Admin Bisacodyl 10 mg 12/02/17 10:23 12/02/17 10:31 Dulcolax RECTAL 12/02/17 10:24 10 mg ONETIME ONE Administration Ondansetron HCl 4 mg 12/02/17 10:23 12/02/17 10:30 Zofran Odt PO 12/02/17 10:24 4 mg ONETIME ONE Administration Departure - Departure Time of Disposition: 11:18 Disposition: Home, Self-Care 01 Condition: Good Clinical Impression: Constipation - Discharge Information Referrals: Cecily Brar PA [Primary Care Provider] - Forms: ED Department Discharge
== END 2017-12-02 11:24 | disposition home or self-care (01) ==
LOC: JP.ED 09:43
DX: K59.00 Constipation, unspecified (principal); F31.9 Bipolar disorder, unspecified; Z77.22 Contact with and (suspected) exposure to environmental tobacco smoke (acute) (chronic); Z79.899 Other long term (current) drug therapy
CPT/HCPCS: 99284; A9270

== ENCOUNTER 2017-12-14 06:50 | Day surgery (SDC) | payer MEDICAID ==
[2017-12-14] MEDS ORDERED: Bupivacaine 0.5%/EPINEPHrine 1:200,000 50 ML MDV ONE (07:05)
[2017-12-14] MEDS: Dextrose 5%-Lactated Ringers 1,000 ML IV SCH ×2 (07:39→15:57)
[2017-12-14] MEDS ORDERED: Acetaminophen 500 MG Tab PO ONE (07:45)
[2017-12-14] MEDS ORDERED: Celecoxib 200 MG Cap PO ONE (07:45)
[2017-12-14] MEDS ORDERED: Lidocaine 0.4%/D5W 2 GM/500 ML BAG IV SCH (08:00)
[2017-12-14] MEDS ORDERED: Ketamine 500 MG/5 ML MDV IV SCH (08:00)
[2017-12-14] MEDS ORDERED: Lidocaine 2% 100 MG/5 ML Syringe IVPUSH SCH (08:00)
[2017-12-14] MEDS ORDERED: Ropivacaine 51 ML, Dexamethasone 8 MG, EPINEPHrine 0.4 MG, Sodium Chloride 0.9% 26.6 ML NERVRT SCH ×4 (08:00)
[2017-12-14] MEDS ORDERED: Ondansetron 4 MG/2 ML SDV ONE (08:59)
[2017-12-14] MEDS ORDERED: Propofol 200 MG/20 ML SDV ONE (08:59)
[2017-12-14] MEDS ORDERED: Succinylcholine/Normal Saline 200 MG/10 ML Syringe ONE (08:59)
[2017-12-14] MEDS ORDERED: fentaNYL 250 MCG/5 ML SDV ONE (08:59)
[2017-12-14] MEDS ORDERED: Dexamethasone 4 MG/ML SDV ONE (08:59)
[2017-12-14] MEDS ORDERED: Rocuronium 50 MG/5 ML Vial ONE (10:05)
[2017-12-14] MEDS: cefOXitin 2 GM in Sodium Chloride 0.9% 50 ML IV ONE ×2 (10:06→12:34)
[2017-12-14] MEDS ORDERED: Lactated Ringers 1,000 ML ONE (10:25)
[2017-12-14] MEDS ORDERED: Neostigmine Methylsulfate 1 MG/ML 5 ML Syringe ONE (10:48)
[2017-12-14] MEDS ORDERED: fentaNYL 100 MCG/2 ML SDV ONE (10:58)
[2017-12-14] MEDS ORDERED: HYDROmorphone/Normal Saline 15 MG/30 ML PCA IV PRN (11:13)
[2017-12-14] MEDS ORDERED: Naloxone 0.4 MG/ML SDV IVPUSH PRN (11:13)
[2017-12-14] MEDS ORDERED: hydrOXYzine HCl 100 MG/2 ML SDV IM ONE (11:14)
[2017-12-14] MEDS ORDERED: Ondansetron 4 MG/2 ML SDV IVPUSH PRN (13:00)
[2017-12-14] MEDS: Acetaminophen/oxyCODONE 325-5 MG Tab PO PRN ×3 (13:17→22:23)
[2017-12-14] MEDS ORDERED: Pantoprazole 40 MG Vial IVPUSH SCH (14:00)
[2017-12-14] MEDS: Metoclopramide 10 MG/2 ML SDV IVPUSH SCH ×2 (14:50→20:05)
[2017-12-14] MEDS: cefOXitin 2 GM in Sodium Chloride 0.9% 50 ML IV SCH ×2 (16:00→22:24)
[2017-12-15] MEDS: Metoclopramide 10 MG/2 ML SDV IVPUSH SCH ×2 (02:14→07:59)
[2017-12-15] MEDS: Acetaminophen/oxyCODONE 325-5 MG Tab PO PRN ×2 (02:17→06:26)
[2017-12-15] MEDS: Dextrose 5%-Lactated Ringers 1,000 ML IV SCH (02:23)
[2017-12-15] MEDS: cefOXitin 2 GM in Sodium Chloride 0.9% 50 ML IV SCH (03:42)
[2017-12-15 07:19] VITALS: BP 117/66
--- NOTE | 2017-12-15 08:07 | PCM.DCSUM1 ---
Discharge Summary - Hospital Course Free Text/Narrative:: The patient was admitted after a cholecystecomy secondary to biliary dyskinesia. The surgery went well and the patient had no acute events overnight. He is doing well with mild abdominal pain controlled with pain medications. He has no concerns and would like to go home. The patient did ask for a bowel regimen to go home with, which will prescribe. HPI Initial Comments: The patient was admitted after cholecystetomy. He had a benign hospital course. Brief History: Cholecystectomy - Discharge Data Discharge Date: 12/15/17 Discharge Disposition: Home, Self-Care 01 Condition: Good - Discharge Diagnosis/Problem(s) (1) Biliary dyskinesia SNOMED Code(s): 513602594 ICD Code: K82.8 - OTHER SPECIFIED DISEASES OF GALLBLADDER Status: Acute Current Visit: Yes - Patient Summary/Data Operative Procedure(s) Performed: cholecystectomy - Patient Instructions Diet: Usual Diet as Tolerated Fluid Restriction: none Activity: No Lifting Over 10 Pounds Driving: May Drive Today Showering/Bathing: February Shower Wound/Incision Care: Keep Operative Site/Wound Site Clean and Dry Notify Provider of: Fever, Increased Pain, Swelling and Redness, Drainage, Nausea and/or Vomiting - Discharge Plan Home Medications: Home Meds FLUoxetine [PROzac] 20 mg PO DAILY 05/08/17 [History] Magnesium Hydroxide [Milk of Magnesia] 30 ml PO DAILY PRN #90 ml 08/04/17 [Rx] Docusate Sodium/Sennosides [Senokot-S] 2 each PO BEDTIME 12/13/17 [History] Metoclopramide HCl [Metoclopramide HCl] 10 mg PO TIDAC 12/13/17 [History] oxyCODONE HCl/Acetaminophen [Percocet 5-325 mg Tablet] 1 - 2 each PO Q4HR PRN [History] - Discharge Summary/Plan Comment Discharge Summary/Plan Comment: The patient had a benign hospital course post cholecystectomy. He looks well and feels good with some mild abdominal tenderness. he will be discharged to home today with a prescription for percocet, senna plus and milk of magnesia. He should return to the ER with increased pain, fever, nausea/vomiting or any other concerns. He is to follow up in clinic on /Sunday of next week. - General Info Date of Service: 12/15/17 Admission Dx/Problem (Free Text: biliary dyskinesia Functional Status: Reports: Pain Controlled - Review of Systems General: Reports: No Symptoms HEENT: Reports: No Symptoms Pulmonary: Reports: No Symptoms Cardiovascular: Reports: No Symptoms Gastrointestinal: Reports: No Symptoms Genitourinary: Reports: No Symptoms Musculoskeletal: Reports: No Symptoms Skin: Reports: No Symptoms Neurological: Reports: No Symptoms Psychiatric: Reports: No Symptoms - Patient Data Vitals - Most Recent: Last Vital Signs Temp 36.6 C 12/15/17 07:00 Pulse 54 L 12/15/17 07:00 Resp 18 12/15/17 07:00 BP 117/66 12/15/17 07:00 Pulse Ox 94 L 12/15/17 07:49 Weight - Most Recent: 100.062 kg I&O - Last 24 hours: Intake & Output 12/14/17 12/15/17 12/15/17 22:59 06:59 14:59 Intake Total 19928 Output Total 2850 700 Balance -857 538 Lab Results - Last 24 hrs: Laboratory Results - last 24 hr 12/15/17 12/15/17 Range/Units 05:03 05:03 WBC 10.2 (4.5-11.0) K/uL RBC 4.75 (4.30-5.90) M/uL Hgb 14.7 (12.0-15.0) g/dL Hct 42.3 (40.0-54.0) % MCV 89 (80-98) fL MCH 31 (27-31) pg MCHC 35 (32-36) % Plt Count 277 (150-400) K/uL Total Bilirubin 1.0 (0.2-1.0) mg/dL Alkaline Phosphatase 68 (46-116) U/L Med Orders - Current: Current Medications Fluoxetine HCl (Prozac) 20 mg PO DAILY [facility] Last Admin: 12/15/17 07:59 Dose: 20 mg Hydromorphone HCl (Dilaudid Meter Attendant 15 Mg In Ns 30 Ml) 0 mg IV ASDIRECTED PRN; Protocol PRN Reason: Pain Dextrose/Lactated Ringer's (Dextrose 5%-Lactated Ringers) 1,000 mls @ 100 mls/ hr IV ASDIRECTED RICK Last Admin: 12/15/17 02:23 Dose: 100 mls/hr Metoclopramide HCl (Reglan) 10 mg IVPUSH Q6H [facility] Last Admin: 12/15/17 07:59 Dose: 10 mg Naloxone HCl (Narcan) 0.1 mg IVPUSH Q5M PRN PRN Reason: Respiratory Distress Ondansetron HCl (Zofran) 4 mg IVPUSH Q4H PRN PRN Reason: Nausea/Vomiting Oxycodone/Acetaminophen (Percocet 325-5 Mg) 1 - 2 tab PO Q4H PRN PRN Reason: Pain Last Admin: 12/15/17 06:26 Dose: 2 tab Pantoprazole Sodium (Protonix Iv) 40 mg IVPUSH Q24H [facility] Last Admin: 12/14/17 14:51 Dose: 40 mg Senna/Docusate Sodium (Senna Plus) 2 tab PO DAILY [facility] Last Admin: 12/15/17 07:59 Dose: 2 tab Discontinued Medications Acetaminophen (Tylenol Extra Strength) 1,000 mg PO ONETIME ONE Stop: 12/14/17 07:46 Last Admin: 12/14/17 07:38 Dose: 1,000 mg Bupivacaine HCl/Epinephrine Bitart (Marcaine 0.5%/Epinephrine 1:200,000) Confirm Administered Dose 50 ml .ROUTE .STK-MED ONE Stop: 12/14/17 07:06 Last Admin: 12/14/17 11:21 Dose: 20 ml Celecoxib (Celebrex) 200 mg PO ONETIME ONE Stop: 12/14/17 07:46 Last Admin: 12/14/17 07:38 Dose: 200 mg Ropivacaine 51 ml/Dexamethasone 8 mg/Epinephrine HCl 0.4 mg/ Sodium Chloride 26.6 ml 0 ml NERVRT ASDIRECTED [facility] Last Admin: 12/14/17 10:40 Dose: 100 syringe Dexamethasone (Dexamethasone) Confirm Administered Dose 4 mg .ROUTE .STK-MED ONE Stop: 12/14/17 09:00 Fentanyl (Sublimaze) Confirm Administered Dose 250 mcg .ROUTE .STK-MED ONE Stop: 12/14/17 09:00 Fentanyl (Sublimaze) Confirm Administered Dose 100 mcg .ROUTE .STK-MED ONE Stop: 12/14/17 10:59 Glycopyrrolate () Confirm Administered Dose 1 mg .ROUTE .STK-MED ONE Stop: 12/14/17 10:49 Hydroxyzine HCl (Vistaril) 100 mg IM ONETIME ONE Stop: 12/14/17 11:15 Last Admin: 12/14/17 11:18 Dose: 100 mg Lidocaine HCl/Dextrose (Lidocaine 2 Gm/D5w 500 Ml) 2 gm in 500 mls @ 30 mls/hr IV .[id number] RICK PRN Reason: 2 MG/MIN Stop: 12/15/17 08:00 Last Admin: 12/14/17 13:18 Dose: 2 mg/min, 30 mls/hr Ketamine HCl 100 mg/ Sodium (Chloride) 100 mls @ 22.5 mls/hr IV ASDIRECTED RICK PRN Reason: 5 MCG/KG/MIN Cefoxitin Sodium 2 gm/ Sodium (Chloride) 50 mls @ 100 mls/hr IV ONETIME ONE Stop: 12/14/17 07:59 Last Admin: 12/14/17 12:34 Dose: Not Given Lactated Ringer's (Ringers, Lactated) Confirm Administered Dose 1,000 mls @ as directed .ROUTE .STK-MED ONE Stop: 12/14/17 10:26 Cefoxitin Sodium 2 gm/ Sodium (Chloride) 50 mls @ 100 mls/hr IV Q6H [facility] Stop: 12/15/17 04:29 Last Admin: 12/15/17 03:42 Dose: 100 mls/hr Ketamine HCl (Ketalar) 38 mg IV ASDIRECTED RICK Lidocaine HCl (Xylocaine 2%) 125 mg IVPUSH ASDIRECTED RICK Neostigmine Methylsulfate (Neostigmine) Confirm Administered Dose 5 mg .ROUTE .STK-MED ONE Stop: 12/14/17 10:49 Ondansetron HCl (Zofran) Confirm Administered Dose 4 mg .ROUTE .STK-MED ONE Stop: 12/14/17 09:00 Propofol (Diprivan 20 Ml) Confirm Administered Dose 200 mg .ROUTE .STK-MED ONE Stop: 12/14/17 09:00 Rocuronium [place] (Zemuron) Confirm Administered Dose 50 mg .ROUTE .STK-MED ONE Stop: 12/14/17 10:06 Succinylcholine Chloride (Succinylcholine In Ns Pf) Confirm Administered Dose 200 mg .ROUTE .STK-MED ONE Stop: 12/14/17 09:00 - Exam General: Reports: Alert, Oriented HEENT: Reports: Pupils Equal, Pupils Reactive, EOMI, Mucous Membr. Moist/[place] Neck: Reports: Supple Lungs: Reports: Clear to Auscultation, Normal Respiratory Effort Cardiovascular: Reports: Regular Rate, Regular Rhythm GI/Abdominal Exam: Normal Bowel Sounds, No Distention, No Abnormal Bruit, Tender (Male) Exam: No Hernia, Normal Inspection, Normal Prostate, Circumcised Back Exam: Reports: Normal Inspection Extremities: Normal Inspection, Normal Range of Motion, Non-Tender, No Pedal Edema, Normal Capillary Refill Skin: Reports: Warm, Dry, Intact Wound/Incisions: Reports: Healing Well Neurological: Reports: No New Focal Deficit Psy/Mental Status: Reports: Alert, Normal Affect, Normal Mood Discharge Operative/Procedures - Procedures Performed Operations: cholecystectomy *Q Meaningful Use (DIS) - VTE *Q VTE Criteria *Q: - Stroke *Q Stroke Criteria *Q: - AMI *Q AMI Criteria *Q:
[2017-12-15] MEDS ORDERED: FLUoxetine 20 MG Cap PO SCH (09:00)
--- NOTE | 2017-12-19 03:03 | OR ---
DATE OF PROCEDURE: 12/14/2017 PREOPERATIVE DIAGNOSIS: Biliary dyskinesia. POSTOPERATIVE DIAGNOSES: 1. Biliary dyskinesia associated with cholelithiasis. 2. Umbilical hernia. OPERATIVE PROCEDURE: Diagnostic laparoscopy with: 1. Laparoscopic cholecystectomy (16501). 2. Umbilical hernia repair (72235). ANESTHESIA: General. ASSISTANTS: Elizabeth Fuentes PA-C and LEIGHANN Baker3. INDICATION FOR PROCEDURE: This is a 37-year-old presenting with some ongoing nausea as well as right upper abdominal pain. Previously, had been noted to have some small stones or sludge in the gallbladder on previous imaging, and then subsequently had a CCK-stimulated HIDA scan which showed below normal ejection fraction as well as reproduction of the discomfort and nausea with the Ensure that was given in lieu of the lack of availability of CCK. Plan is to treat him with a laparoscopic or if necessary open cholecystectomy. Potential risks, including bleeding, infection, injury to underlying viscera, possible incomplete relief of symptoms, etc., were all reviewed, and the patient wishes to proceed. DETAILS OF PROCEDURE: The patient was taken to the operating room and placed in a supine position. After general endotracheal anesthesia was induced, the abdomen was prepped and draped. A transverse epigastric incision was made and the peritoneal cavity entered under direct vision with an Optiview trocar and inflated to 15 mmHg pressure of CO2. Laparoscope was then reinserted. No underlying trocar insertion site injuries were seen. Following this, the umbilical area was examined. The patient was noted to have a small umbilical hernia. A transverse infraumbilical incision was made and the 12 mm trocar was then placed from that point through the center of the hernia to facilitate as closure at the end of the procedure. Additional 5 mm trocar was then placed in the right upper quadrant. The upper abdomen was examined. The patient was noted to have a fairly distended gallbladder with fair bit of edema gallbladder neck. Dissection began on the gallbladder neck with Harmonic scalpel and continued around the gallbladder neck and cystic duct junction. Once that area was well delineated as was the adjacent cystic artery, both structures were clipped 3 times proximally, once distally, and divided. The gallbladder was then dissected off the gallbladder bed using Harmonic scalpel, delivered through the upper midline port. It was noted to have quite a bit in the way of tiny black stones within it. The area of dissection was inspected. No bleeding or bile leaks were seen and drain was felt not to be necessary. The camera port was then brought back up to the epigastric site and the umbilical trocar was removed. The hernia was then repaired with a transverse orientation of several sutures of 0 Vicryl stitch at the fascia level, and the remaining trocars were removed and peritoneal cavity deflated. The incisions were all closed at skin level with 4-0 Vicryl skin stitch. Dressing was applied. The patient was taken to recovery room in satisfactory condition. There were no evident complications. Physician zoning assistant, Elizabeth Fuentes, played an essential role in assisting in this case, helping to position the patient, retract structures as needed, both suturing and cutting sutures when indicated. Her presence improved the patient's safety and decreased the operative time. Raymond Randall MD /[id number]
== END 2017-12-15 10:00 | disposition home or self-care (01) ==
LOC: JP.SDS 06:50 → JP.MS 11:50 → JP.SDSSCHI 12:09 → JP.MS 12:11 → JP.SDS 12-15 10:00
PROVIDERS: ATTEND Surgery
DX: K82.8 Other specified diseases of gallbladder (principal); Z90.49 Acquired absence of other specified parts of digestive tract; Z79.899 Other long term (current) drug therapy
CPT/HCPCS: 36415; 47562; 49652; 80053; 82247; 83735; 84075; 84100; 85027; 88304; 94762; A9270; C9113; J0171; J0694; J1100; J2001; J2405; J2704; J2765; J2795; J3010; J3410; J7030; J7042; J7050; J7120

== ENCOUNTER 2019-03-02 14:16 | Emergency (ER) | payer MEDICAID ==
[2019-03-02 15:07] VITALS: BP 119/80
[2019-03-02] MEDS ORDERED: Sodium Chloride 0.9% 10 ML Syringe FLUSH PRN (15:53)
[2019-03-02] MEDS ORDERED: Ondansetron 4 MG/2 ML SDV IVPUSH ONE (15:54)
[2019-03-02] MEDS ORDERED: HYDROmorphone 0.5 MG/0.5 ML Syringe IVPUSH ONE (15:54)
--- NOTE | 2019-03-02 16:00 | EDM.PDOC ---
ED HPI GENERAL MEDICAL PROBLEM - General Chief Complaint: Abdominal Pain Stated Complaint: SPITTING BLOOD Time Seen by Provider: 03/02/19 15:45 Source of Information: Reports: Patient, Old Records, RN History Limitations: Reports: No Limitations - History of Present Illness INITIAL COMMENTS - FREE TEXT/NARRATIVE: 38 yo male with a pHx of gastric bypass has been having intermittent abdominal pain for over a year. He does not have pain every day. When he was seen in the clinic for this they told him to reduce coffee and soda and tx'd him with omeprazole 40 mg q bibiana which he is still on. A recent stool was dark. Says he is "spitting up blood". Pain is worse now than normal. Denies ETOH use. Dr. Randall did his gastric bypass. Onset: Gradual Duration: Chronic, Waxing/Waning Location: Reports: Abdomen Quality: Reports: Ache Severity: Moderate Improves with: Reports: None Worsens with: Reports: None Context: Reports: Other (See HPI) Associated Symptoms: Reports: Nausea/Vomiting, Other (stool dark). 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 (see below) (usual meds) abd Pain Score (Numeric/FACES): 4 - Related Data Allergies Allergy/AdvReac Type Severity Reaction Status Date / Time No Known Allergies Allergy Verified 03/02/19 15:11 Home Meds: Home Meds OLANZapine [Olanzapine] 7.5 mg PO ASDIRECTED 03/02/19 [History] Omeprazole 40 mg PO DAILY 03/02/19 [History] lamoTRIgine [Lamotrigine] 25 mg PO DAILY 03/02/19 [History] Past Medical History HEENT History: Reports: Impaired Vision Cardiovascular History: Reports: Blood Clots/VTE/DVT, High Cholesterol Respiratory History: Reports: None Gastrointestinal History: Reports: Cholelithiasis, Chronic Diarrhea, GERD Genitourinary History: Reports: None Musculoskeletal History: Reports: Fracture Other Musculoskeletal History: L KNEE REPAIR 7 YEARS AGO, CHRONIC PAIN Neurological History: Reports: Concussion Psychiatric History: Reports: ADD, Anxiety, Bipolar, Depression, Mood Swings, Schizophrenia Endocrine/Metabolic History: Reports: Obesity/BMI 30+ Hematologic History: Reports: None Immunologic History: Reports: None Oncologic (Cancer) History: Reports: None Dermatologic History: Reports: None - Infectious Disease History Infectious Disease History: Reports: Chicken Pox - Past Surgical History Head Surgeries/Procedures: Reports: None HEENT Surgical History: Reports: None Cardiovascular Surgical History: Reports: None Respiratory Surgical History: Reports: None GI Surgical History: Reports: None, Bariatric Procedure, EGD, Mary Jo Fundoplication Endocrine Surgical History: Reports: None Neurological Surgical History: Reports: None Musculoskeletal Surgical History: Reports: Other (See Below) Other Musculoskeletal Surgeries/Procedures:: pins in and out left knee Oncologic Surgical History: Reports: None Dermatological Surgical History: Reports: None Social & Family History - Family History Family Medical History: Noncontributory - Tobacco Use Smoking Status *Q: Never Smoker - Caffeine Use Caffeine Use: Reports: Coffee, Energy Drinks, Soda - Recreational Drug Use Recreational Drug Use: No ED ROS GENERAL - Review of Systems Review Of Systems: See Below Constitutional: Reports: No Symptoms HEENT: Reports: No Symptoms Respiratory: Reports: No Symptoms Cardiovascular: Reports: No Symptoms Endocrine: Reports: No Symptoms GI/Abdominal: Reports: Abdominal Pain, Hematemesis, Melena, Nausea, Vomiting. Denies: Bloody Stool, Constipation, Diarrhea, Decreased Appetite, Difficulty Swallowing, Distension, Flatus, Hematochezia : Reports: No Symptoms Musculoskeletal: Reports: No Symptoms Skin: Reports: No Symptoms Neurological: Reports: No Symptoms ED EXAM, GI/ABD - Physical Exam Exam: See Below Exam Limited By: No Limitations General Appearance: Alert, WD/WN, No Apparent Distress Eyes: Bilateral: Normal Appearance Ears: Normal External Exam, Normal Canal, Hearing Grossly Normal Nose: Normal Inspection, No Blood Throat/Mouth: Normal Inspection, Normal Lips, Normal Oropharynx, Normal Voice, No Airway Compromise Head: Atraumatic, Normocephalic Neck: Normal Inspection, Supple, Non-Tender Respiratory/Chest: No Respiratory Distress, Lungs Clear, Normal Breath Sounds, No Accessory Muscle Use Cardiovascular: Regular Rate, Rhythm, No Edema GI/Abdominal Exam: Normal Bowel Sounds, Soft, No Distention, Distended (? obese) , Tender (diffuse). No: Guarding, Rigid, Rebound, Abnormal Bowel Sounds Back Exam: Normal Inspection. No: CVA Tenderness (R), CVA Tenderness (L) Extremities: Normal Inspection, Normal Range of Motion, Non-Tender, No Pedal Edema Neurological: Alert, Oriented, CN II-XII Intact, Normal Cognition, No Motor/ Sensory Deficits Psychiatric: Normal Affect, Normal Mood Skin Exam: Warm, Dry, Intact, Normal Color, No Rash Lymphatic: No Adenopathy Course - Vital Signs Last Recorded V/S: Last Vital Signs Temp 35.8 C 03/02/19 15:10 Pulse 72 03/02/19 15:10 Resp 20 03/02/19 15:10 BP 119/80 03/02/19 15:10 Pulse Ox 97 03/02/19 15:10 - Orders/Labs/Meds Orders: Active Orders 24 hr Category Date Time Status Hemoccult [OCCULT BLOOD DIAGNOSTIC] [OP] Stat Lab 03/02/19 15:53 Ordered Sodium Chloride 0.9% [Saline Flush] Med 03/02/19 15:53 Active 10 ml FLUSH ASDIRECTED PRN Saline Lock Insert [OM.PC] Routine Oth 03/02/19 15:53 Ordered Medication Orders Sodium Chloride (Saline Flush) 10 ml FLUSH ASDIRECTED PRN PRN Reason: Keep Vein Open Last Admin: 03/02/19 16:10 Dose: 10 ml Labs: Laboratory Tests 03/02/19 03/02/19 03/02/19 Range/Units 16:03 16:03 16:04 WBC 5.7 (4.5-11.0) K/uL RBC 5.19 (4.30-5.90) M/uL Hgb 15.4 H (12.0-15.0) g/dL Hct 44.6 (40.0-54.0) % MCV 86 (80-98) fL MCH 30 (27-31) pg MCHC 35 (32-36) % Plt Count 318 (150-400) K/uL Sodium 138 L (140-148) mmol/L Potassium 3.6 (3.6-5.2) mmol/L Chloride 101 (100-108) mmol/L Carbon Dioxide 26 (21-32) mmol/L Anion Gap 14.6 H (5.0-14.0) mmol/L BUN 8 (7-18) mg/dL Creatinine 1.1 (0.8-1.3) mg/dL Est Cr Clr Drug Dosing 96.03 mL/min Estimated GFR (MDRD) > 60 (>60) Glucose 98 (74-106) mg/dL Calcium 9.3 (8.5-10.1) mg/dL Lipase 124 (73-393) U/L Meds: Medications Generic Name Dose Route Start Last Admin Trade Name Chari PRN Reason Stop Dose Admin Sodium Chloride 10 ml 03/02/19 15:53 03/02/19 16:10 Saline Flush FLUSH 10 ml ASDIRECTED PRN Administration Keep Vein Open Discontinued Medications Generic Name Dose Route Start Last Admin Trade Name Miguelq PRN Reason Stop Dose Admin Hydromorphone HCl 0.5 mg 03/02/19 15:54 03/02/19 16:12 Dilaudid IVPUSH 03/02/19 15:55 0.5 mg ONETIME ONE Administration Sodium Chloride 80 mls @ 3.5 mls/sec 03/02/19 16:44 03/02/19 16:52 Normal Saline IV 03/02/19 16:45 3.5 mls/sec ONETIME ONE Administration Iopamidol 150 ml 03/02/19 16:45 03/02/19 16:52 Isovue-300 (61%) IV 150 ml . DIRECTED RICK Administration Ondansetron HCl 4 mg 03/02/19 15:54 03/02/19 16:12 Zofran IVPUSH 03/02/19 15:55 4 mg ONETIME ONE Administration Sodium Chloride 10 ml 03/02/19 16:44 03/02/19 16:52 Saline Flush FLUSH 03/02/19 16:45 10 ml ONETIME ONE Administration - Radiology Interpretation Free Text/Narrative:: CT of abd/pelvis with IV contrast-neg CT Results Date: 03/02/19 CT Results Time: 17:45 Departure - Departure Time of Disposition: 18:00 Disposition: Home, Self-Care 01 Condition: Fair Clinical Impression: Nausea Gastritis Qualifiers: Gastritis type: unspecified gastritis Chronicity: chronic Gastritis bleeding: with bleeding Qualified Code(s): K29.51 - Unspecified chronic gastritis with bleeding - Discharge Information *PRESCRIPTION DRUG MONITORING PROGRAM REVIEWED*: No *COPY OF PRESCRIPTION DRUG MONITORING REPORT IN PATIENT LEIDA: No Instructions: Gastritis, Adult, [id number] Referrals: Cecily Brar PA [Primary Care Provider] - Forms: ED Department Discharge Additional Instructions: Add Carafate to your current omeprazole 40 mg at bedtime dosing. Turn a stool specimen into your clinic for H. pylori stool antigen testing. Take Tylenol #3 as needed for pain relief. Take Zofran as needed for nausea control. Avoid ibuprofen, Aleve, Aspirin, caffeine, carbonated beverages, alcohol or tobacco products. Clinic recheck in a couple days. - My Orders Last 24 Hours: My Active Orders 03/02/19 15:53 Hemoccult [OCCULT BLOOD DIAGNOSTIC] [OP] Stat Sodium Chloride 0.9% [Saline Flush] 10 ml FLUSH ASDIRECTED PRN Saline Lock Insert [OM.PC] Routine - Assessment/Plan Last 24 Hours: My Active Orders 03/02/19 15:53 Hemoccult [OCCULT BLOOD DIAGNOSTIC] [OP] Stat Sodium Chloride 0.9% [Saline Flush] 10 ml FLUSH ASDIRECTED PRN Saline Lock Insert [OM.PC] Routine
[2019-03-02] MEDS ORDERED: Sodium Chloride 0.9% 80 ML IV ONE (16:44)
[2019-03-02] MEDS ORDERED: Sodium Chloride 0.9% 10 ML Syringe FLUSH ONE (16:44)
[2019-03-02] MEDS ORDERED: Iopamidol 612 MG/ML 150 ML Bottle IV SCH (16:45)
--- NOTE | 2019-03-02 17:38 | CRLCT ---
INDICATION: Abdominal pain. TECHNIQUE: CT abdomen and pelvis acquired with IV contrast. 150 mL Isovue-300. COMPARISON: CT abdomen/pelvis 09/14/2017 FINDINGS: Lower chest: Within normal limits. Liver: Within normal limits. Spleen: Within normal limits. Pancreas: Within normal limits. Gallbladder and bile ducts: Status post cholecystectomy. Kidneys: Within normal limits. Adrenal glands: Within normal limits. GI tract: No bowel obstruction. Normal appendix containing a focus of air. Stable surgical clips the gastroesophageal junction. Vascular structures: Within normal limits. Lymph nodes: No mesenteric or retroperitoneal lymphadenopathy. Miscellaneous: No ascites. No free air. Tiny fat containing umbilical hernia. Pelvic Organs: Normal sized prostate. Seminal vesicles are symmetric. Bones: No acute abnormality. IMPRESSION: No acute abnormality in the abdomen and pelvis. Normal appendix. Dictated by Debi Viera MD @ 03/02/2019 5:37:26 PM Please note that all CT scans at this facility use dose modulation, iterative reconstruction, and/or weight-based dosing when appropriate to reduce radiation dose to as low as reasonably achievable. Dictated by: Debi Viera MD @ 03/02/2019 17:37:35 (Electronically Signed)
[2019-03-02] MEDS ORDERED: Sucralfate 1 GM Tab PO ONE (17:54)
== END 2019-03-02 18:37 | disposition home or self-care (01) ==
LOC: JP.ED 14:16
DX: K29.51 Unspecified chronic gastritis with bleeding (principal); E78.00 Pure hypercholesterolemia, unspecified; Z79.899 Other long term (current) drug therapy
CPT/HCPCS: 36415; 74177; 80048; 82272; 83690; 85027; 96374; 96375; 99284; A9270; J1170; J2405; J7030

== ENCOUNTER 2019-03-05 11:33 | Emergency (ER) | payer MEDICAID ==
[2019-03-05 12:03] VITALS: BP 120/77
[2019-03-05] MEDS ORDERED: fentaNYL 100 MCG/2 ML SDV IM ONE (12:14)
--- NOTE | 2019-03-05 12:20 | EDM.PDOC ---
ED HPI GENERAL MEDICAL PROBLEM - General Chief Complaint: Abdominal Pain Stated Complaint: PAIN IN STOMACH Time Seen by Provider: 03/05/19 12:07 Source of Information: Reports: Patient, Old Records, RN Notes Reviewed History Limitations: Reports: No Limitations - History of Present Illness INITIAL COMMENTS - FREE TEXT/NARRATIVE: 38-year-old gentleman 38-year-old gentleman presents emergency department today complaint of abdominal pain, he was evaluated in the emergency department 3 days prior lab work and CT scan done at that time showed no acute process he does have a history of gastric bypass he has not followed up with his surgeon in clinic. States he was not C this morning states have regular bowel movements the pain is intermittent mainly in the epigastric region. He states "I would like to have my meshed checked out" Lower Abdominal Pain Score (Numeric/FACES): 4 - Related Data Allergies Allergy/AdvReac Type Severity Reaction Status Date / Time No Known Allergies Allergy Verified 03/02/19 15:11 Home Meds: Home Meds OLANZapine [Olanzapine] 7.5 mg PO ASDIRECTED 03/02/19 [History] Omeprazole 40 mg PO DAILY 03/02/19 [History] Sucralfate [Carafate] 1 gm PO QID #90 ml 03/02/19 [Rx] lamoTRIgine [Lamotrigine] 25 mg PO DAILY 03/02/19 [History] Past Medical History HEENT History: Reports: Impaired Vision Cardiovascular History: Reports: Blood Clots/VTE/DVT, High Cholesterol Gastrointestinal History: Reports: Cholelithiasis, Chronic Diarrhea, GERD Musculoskeletal History: Reports: Fracture Other Musculoskeletal History: L KNEE REPAIR 7 YEARS AGO, CHRONIC PAIN Neurological History: Reports: Concussion Psychiatric History: Reports: ADD, Anxiety, Bipolar, Depression, Mood Swings, Schizophrenia Endocrine/Metabolic History: Reports: Obesity/BMI 30+ - Infectious Disease History Infectious Disease History: Reports: Chicken Pox - Past Surgical History Head Surgeries/Procedures: Reports: None HEENT Surgical History: Reports: None Cardiovascular Surgical History: Reports: None Respiratory Surgical History: Reports: None GI Surgical History: Reports: None, Bariatric Procedure, EGD, Mary Jo Fundoplication Endocrine Surgical History: Reports: None Neurological Surgical History: Reports: None Musculoskeletal Surgical History: Reports: Other (See Below) Other Musculoskeletal Surgeries/Procedures:: pins in and out left knee Oncologic Surgical History: Reports: None Dermatological Surgical History: Reports: None Social & Family History - Family History Family Medical History: Noncontributory - Tobacco Use Smoking Status *Q: Never Smoker - Caffeine Use Caffeine Use: Reports: Coffee, Soda, Tea - Recreational Drug Use Recreational Drug Use: No ED ROS GENERAL - Review of Systems Review Of Systems: See Below Constitutional: Denies: Fever, Chills HEENT: Reports: No Symptoms Respiratory: Reports: No Symptoms Cardiovascular: Reports: No Symptoms GI/Abdominal: Reports: Abdominal Pain, Flatus, Nausea Musculoskeletal: Reports: No Symptoms Skin: Reports: No Symptoms Neurological: Reports: No Symptoms ED EXAM, GI/ABD - Physical Exam Exam: See Below Exam Limited By: No Limitations General Appearance: Alert, WD/WN, No Apparent Distress Respiratory/Chest: No Respiratory Distress, Lungs Clear, Normal Breath Sounds, No Accessory Muscle Use, Chest Non-Tender Cardiovascular: Regular Rate, Rhythm, No Murmur GI/Abdominal Exam: Normal Bowel Sounds, Soft, Non-Tender Course - Vital Signs Last Recorded V/S: Last Vital Signs Temp 96.4 F 03/05/19 12:06 Pulse 69 03/05/19 12:06 Resp 14 03/05/19 12:06 BP 120/77 03/05/19 12:06 Pulse Ox 94 L 03/05/19 12:06 - Orders/Labs/Meds Labs: Laboratory Tests 03/05/19 03/05/19 03/05/19 Range/Units 12:25 12:25 12:25 WBC 5.3 (4.5-11.0) K/uL RBC 5.07 (4.30-5.90) M/uL Hgb 15.5 H (12.0-15.0) g/dL Hct 43.3 (40.0-54.0) % MCV 85 (80-98) fL MCH 31 (27-31) pg MCHC 36 (32-36) % Plt Count 297 (150-400) K/uL Neut % (Auto) 54 (36-66) % Lymph % (Auto) 35 (24-44) % [place] % (Auto) 8 H (2-6) % Eos % (Auto) 3 (2-4) % Baso % (Auto) 1 (0-1) % Sodium 139 L (140-148) mmol/L Potassium 3.8 (3.6-5.2) mmol/L Chloride 103 (100-108) mmol/L Carbon Dioxide 25 (21-32) mmol/L Anion Gap 14.8 H (5.0-14.0) mmol/L BUN 13 D (7-18) mg/dL Creatinine 1.2 (0.8-1.3) mg/dL Est Cr Clr Drug Dosing 88.02 mL/min Estimated GFR (MDRD) > 60 (>60) Glucose 97 (74-106) mg/dL Lactic Acid 0.9 (0.4-2.0) mmol/L Calcium 8.9 (8.5-10.1) mg/dL Total Bilirubin 0.8 (0.2-1.0) mg/dL AST 12 L (15-37) U/L ALT 31 (12-78) U/L Alkaline Phosphatase 89 (46-116) U/L Total Protein 7.6 (6.4-8.2) g/dL Albumin 4.0 (3.4-5.0) g/dL Globulin 3.6 H (2.3-3.5) g/dL Albumin/Globulin Ratio 1.1 L (1.2-2.2) Lipase 113 (73-393) U/L Meds: Medications Discontinued Medications Generic Name Dose Route Start Last Admin Trade Name Freq PRN Reason Stop Dose Admin Fentanyl 50 mcg 03/05/19 12:14 03/05/19 12:24 Sublimaze IM 03/05/19 12:15 50 mcg ONETIME ONE Administration Departure - Departure Time of Disposition: 13:28 Disposition: Home, Self-Care 01 Condition: Fair Clinical Impression: Abdominal pain Qualifiers: Abdominal location: generalized Qualified Code(s): R10.84 - Generalized abdominal pain - Discharge Information Referrals: Cecily Brar PA [Primary Care Provider] - Forms: ED Department Discharge Additional Instructions: Use hydrocodone as needed for pain control, please follow-up with Dr. Randall in clinic next week - Assessment/Plan Plan: Assessment Acuity = acute Site and laterality = abdominal pain, complicated in a patient known history gastric bypass Etiology = unknown etiology] Manifestations = none Location of injury = Home Lab values = CBC, CMP unremarkable Plan Discussed case Dr. Randall at 1320 recommended follow-up in clinic next week prescription for hydrocodone 5/325 one tab by mouth 3 times a day when necessary total #10 This note was dictated using [employer] voice recognition software please call with any questions on syntax or grammar.
== END 2019-03-05 13:38 | disposition home or self-care (01) ==
LOC: JP.ED 11:33
DX: R10.84 Generalized abdominal pain (principal); F31.9 Bipolar disorder, unspecified; F41.9 Anxiety disorder, unspecified; Z79.899 Other long term (current) drug therapy
CPT/HCPCS: 36415; 80053; 83605; 83690; 85025; 96372; 99284; J3010

== ENCOUNTER 2019-03-21 06:46 | Day surgery (SDC) | payer MEDICAID ==
[2019-03-21] MEDS ORDERED: Midazolam 1 MG/ML 2 ML SDV ONE (07:04)
[2019-03-21] MEDS ORDERED: fentaNYL 100 MCG/2 ML SDV ONE (07:04)
[2019-03-21] MEDS ORDERED: Propofol 200 MG/20 ML SDV ONE ×2 (07:04→08:29)
[2019-03-21] MEDS ORDERED: Dextrose 5%-Lactated Ringers 1,000 ML IV SCH (07:15)
[2019-03-21] MEDS ORDERED: Glycopyrrolate 0.2 MG/ML 2 ML SDV IVPUSH ONE (07:15)
[2019-03-21 09:34] VITALS: BP 135/80
--- NOTE | 2019-03-26 14:59 | OR ---
DATE OF PROCEDURE: 03/21/2019 PREOPERATIVE DIAGNOSIS: Left upper quadrant abdominal pain. POSTOPERATIVE DIAGNOSES: 1. Left upper quadrant pain associated with very mild antral gastritis. 2. Intact Mary Jo fundoplication without significant inflammation at esophagogastric junction. OPERATIVE PROCEDURE: Esophagogastroduodenoscopy with antral biopsies for CLOtest. ANESTHESIA: IV sedation. INDICATION FOR PROCEDURE: This is a 38-year-old status post Mary Jo fundoplication, presenting with some left-sided abdominal pain, that does not appear to be effected per se by eating. The plan is to proceed with upper GI endoscopy with biopsies as indicated. Potential risks including bleeding and perforation were discussed, and the patient wishes to proceed. DETAILS OF PROCEDURE: The patient was taken to the operating room and placed in a left lateral decubitus position. IV sedation was administered, after which, the upper GI endoscope was passed orally through the length of the esophagus, into the stomach with retroflexion view of the fundus, and thereafter through the pyloric channel and into the duodenum to the junction of the third and fourth duodenal portions. The findings included an intact Mary Jo fundoplication with no significant inflammation at the esophagus. Within the stomach, there was some very mild patchy redness in the antrum with one tiny erosion present. The pyloric channel and visualized portions of the duodenum were unremarkable. At this point, biopsies were obtained from the antrum and sent for CLOtest for H. pylori. Minimal bleeding from the biopsy site was seen, and the procedure then concluded. The patient presently reports being on both Prilosec and Protonix. He will be instructed that he does not need to stay on the Prilosec, but to continue the Protonix. We will add Zantac 300 mg a day as well. He will be following up with Cecily Brar PA-C, in [facility] in 3 to 4 weeks. If the CLOtest comes back positive, we will contact and initiate a course of antibiotics. Raymond Randall MD /[id number]
== END 2019-03-21 09:42 | disposition home or self-care (01) ==
LOC: JP.SDS 06:46
PROVIDERS: ATTEND Surgery
DX: K29.50 Unspecified chronic gastritis without bleeding (principal); K21.9 Gastro-esophageal reflux disease without esophagitis; E78.5 Hyperlipidemia, unspecified; F90.9 Attention-deficit hyperactivity disorder, unspecified type; F41.9 Anxiety disorder, unspecified; F20.9 Schizophrenia, unspecified; Z98.890 Other specified postprocedural states
CPT/HCPCS: 43239; 87081; J2250; J2704; J3010; J3490; J7042

== ENCOUNTER 2022-03-31 14:33 | Emergency (ER) | payer MEDICAID ==
[2022-03-31 14:48] VITALS: BP 121/79; PULSE 98
[2022-03-31] MEDS ORDERED: Ketorolac 30 MG/ML SDV IVPUSH ONE (16:04)
[2022-03-31] MEDS ORDERED: Ketorolac 30 MG/ML SDV IM ONE (16:05)
== END 2022-03-31 17:19 | disposition home or self-care (01) ==
LOC: JP.ED 14:33
DX: S00.83XA Contusion of other part of head, initial encounter (principal); K64.9 Unspecified hemorrhoids; K59.00 Constipation, unspecified; K21.9 Gastro-esophageal reflux disease without esophagitis; E66.9 Obesity, unspecified; Z68.28 Body mass index [BMI] 28.0-28.9, adult; Z79.899 Other long term (current) drug therapy; W22.8XXA Striking against or struck by other objects, initial encounter
CPT/HCPCS: 70150; 82272; 96372; 99283; 99285; J1885

== ENCOUNTER → 2022-04-20 | Day surgery (SDC) | payer MEDICAID ==
[~2022-04-20] MED LIST changes: -Dexamethasone 4 MG/ML SDV ONE; +Dextrose 5%-Lactated Ringers 1,000 ML IV SCH; -Glycopyrrolate 0.2 MG/ML 5 ML MDV ONE; -Neostigmine Methylsulfate 1 MG/ML 5 ML Syringe ONE; -Ondansetron 4 MG/2 ML SDV ONE; -Rocuronium 50 MG/5 ML Vial ONE; -Succinylcholine 200 MG/10 ML MDV ONE; +fentaNYL 100 MCG/2 ML SDV ONE
[2022-04-20 08:42] VITALS: BP 110/65; PULSE 66
== END ==
LOC: JP.SDS 05:17
PROVIDERS: ATTEND Surgery
DX: K64.8 Other hemorrhoids (principal); E78.5 Hyperlipidemia, unspecified; K21.9 Gastro-esophageal reflux disease without esophagitis; E66.9 Obesity, unspecified; Z01.812 Encounter for preprocedural laboratory examination; Z20.822 Contact with and (suspected) exposure to COVID-19
CPT/HCPCS: J2250; J2704; J3010; J7121; U0002

== ENCOUNTER 2022-05-19 16:06 | Emergency (ER) | payer MEDICAID ==
[2022-05-19 17:08] VITALS: BP 114/66; PULSE 74
== END 2022-05-19 18:08 | disposition home or self-care (01) ==
LOC: JP.ED 16:06
DX: G89.18 Other acute postprocedural pain (principal); E66.9 Obesity, unspecified; Z68.29 Body mass index [BMI] 29.0-29.9, adult; Z79.899 Other long term (current) drug therapy
CPT/HCPCS: 99282; 99283

== ENCOUNTER 2023-03-09 14:47 | Emergency (ER) | payer MEDICAID ==
[2023-03-09] MEDS ORDERED: Proparacaine 0.5% Ophth Soln 15 ML Bottle EYERT ONE (15:19)
[2023-03-09] MEDS ORDERED: Erythromycin Base 0.5% Ophth Oint 1 GM Tube EYERT ONE (15:19)
[2023-03-09] MEDS ORDERED: Fluorescein 1 MG Ophth Strip EYERT ONE (15:20)
[2023-03-09 15:21] VITALS: BP 122/75; PULSE 97
== END 2023-03-09 15:55 | disposition home or self-care (01) ==
LOC: JP.ED 14:47
DX: S05.91XA Unspecified injury of right eye and orbit, initial encounter (principal); H10.9 Unspecified conjunctivitis; K21.9 Gastro-esophageal reflux disease without esophagitis; E66.9 Obesity, unspecified; Z68.30 Body mass index [BMI] 30.0-30.9, adult; W22.8XXA Striking against or struck by other objects, initial encounter; Y92.096 Garden or yard of other non-institutional residence as the place of occurrence of the external cause
CPT/HCPCS: 99283; A9270

== ENCOUNTER 2024-02-10 10:25 | Emergency (ER) | payer MEDICAID ==
[2024-02-10 10:37] VITALS: BP 125/78; PULSE 77
[2024-02-10] MEDS: droPERidol 5 MG/2 ML SDV IM ONE (10:59)
[2024-02-10 11:08] LABS: BASOPHILS ABSOLUTE AUTO 0.11 K/uL (0.00-0.10); BASOPHILS PERCENT AUTO 1.9 % (0.1-1.3); EOSINOPHILS ABSOLUTE AUTO 0.11 K/uL (0.00-0.40); EOSINOPHILS PERCENT AUTO 1.9 % (0.0-5.4); HEMATOCRIT 44.8 % (38.4-49.7); IMMATURE GRAN ABSOLUTE AUTO 0.04 K/uL (0.00-0.23); IMMATURE GRAN PERCENT AUTO 0.7 % (0.0-0.7); LYMPHOCYTES ABSOLUTE AUTO 1.99 K/uL (0.8-3.3); LYMPHOCYTES PERCENT AUTO 34.6 % (11.4-47.7); MEAN CORPUSCULAR HEMOGLOBIN 31.5 pg (31.6-35.5); MEAN CORPUSCULAR HGB CONC 35.7 g/dL (31.6-35.5); MEAN CORPUSCULAR VOLUME 88.2 fL (81.4-99.0); MONOCYTES ABSOLUTE AUTO 0.45 K/uL (0.20-0.90); MONOCYTES PERCENT AUTO 7.8 % (3.3-12.6); NEUTROPHILS ABSOLUTE AUTO 3.05 K/uL (1.0-7.6); NEUTROPHILS PERCENT AUTO 53.1 % (40.0-78.1); PLATELET COUNT,PLT 285 K/uL (130-375); RED BLOOD CELL COUNT 5.08 M/uL (4.14-5.76); WHITE BLOOD CELL COUNT,WBC 5.8 K/uL (3.2-11.0)
[2024-02-10 11:22] LABS: CALCIUM 9.1 mg/dL (8.5-10.1); CREATININE 1.3 mg/dL (0.8-1.3); EST CRCL DRUG DOSING (CG) 77.23 mL/min; POTASSIUM,K 4.2 mmol/L (3.6-5.2)
[2024-02-10 11:23] LABS: ANION GAP 17.2 mmol/L (5.0-14.0)
== END 2024-02-10 12:12 | disposition home or self-care (01) ==
LOC: JP.ED 10:25
DX: R11.10 Vomiting, unspecified (principal); K21.9 Gastro-esophageal reflux disease without esophagitis; E66.9 Obesity, unspecified; Z79.899 Other long term (current) drug therapy; Z86.19 Personal history of other infectious and parasitic diseases; Z68.33 Body mass index [BMI] 33.0-33.9, adult
CPT/HCPCS: 36415; 80048; 83605; 85025; 96372; 99284; J1790

== ENCOUNTER 2025-08-15 07:13 | Emergency (ER) | payer MEDICAID ==
[2025-08-15 07:15] VITALS: PULSE 75
[2025-08-15] MEDS ORDERED: Sodium Chloride 0.9% 10 ML Syringe FLUSH PRN (07:47)
[2025-08-15 07:56] LABS: BASOPHILS ABSOLUTE AUTO 0.03 K/uL (0.00-0.10); BASOPHILS PERCENT AUTO 0.3 % (0.1-1.3); EOSINOPHILS PERCENT AUTO 0.1 % (0.0-5.4); IMMATURE GRAN ABSOLUTE AUTO 0.07 K/uL (0.00-0.23); IMMATURE GRAN PERCENT AUTO 0.6 % (0.0-0.7); LYMPHOCYTES ABSOLUTE AUTO 1.44 K/uL (0.8-3.3); LYMPHOCYTES PERCENT AUTO 12.1 % (11.4-47.7); MONOCYTES ABSOLUTE AUTO 0.98 K/uL (0.20-0.90); MONOCYTES PERCENT AUTO 8.3 % (3.3-12.6); NEUTROPHILS ABSOLUTE AUTO 9.33 K/uL (1.0-7.6); NEUTROPHILS PERCENT AUTO 78.6 % (40.0-78.1); PLATELET COUNT,PLT 253 K/uL (130-375); RED BLOOD CELL COUNT 4.11 M/uL (4.14-5.76); WHITE BLOOD CELL COUNT,WBC 11.9 K/uL (3.2-11.0)
[2025-08-15 07:57] LABS: EOSINOPHILS ABSOLUTE AUTO 0.01 K/uL (0.00-0.40)
[2025-08-15] MEDS: fentaNYL 100 MCG/2 ML SDV IVPUSH ONE (08:11)
[2025-08-15 08:12] LABS: BLOOD UREA NITROGEN,BUN 14.0 mg/dL (7-18); CARBON DIOXIDE,CO2 26.0 mmol/L (21-32); CHLORIDE,CL 106.0 mmol/L (100-108); CREATININE 1.1 mg/dL (0.8-1.3); EST CRCL DRUG DOSING (CG) 90.32 mL/min; ESTIMATED GFR 84.0 mL/min (>60); GLUCOSE RANDOM 108.0 mg/dL (74-106); POTASSIUM,K 3.7 mmol/L (3.6-5.2); SODIUM,NA 141.0 mmol/L (140-148)
[2025-08-15] MEDS: Ondansetron 4 MG/2 ML SDV IVPUSH ONE (08:12)
[2025-08-15 09:22] VITALS: BP 115/74
== END 2025-08-15 10:30 | disposition home or self-care (01) ==
LOC: JP.ED 07:13
DX: K91.840 Postprocedural hemorrhage of a digestive system organ or structure following a digestive system procedure (principal); E66.9 Obesity, unspecified; K21.9 Gastro-esophageal reflux disease without esophagitis; Z79.899 Other long term (current) drug therapy; Z68.34 Body mass index [BMI] 34.0-34.9, adult
CPT/HCPCS: 36415; 80048; 85025; 96361; 96374; 96375; 99284; J1790; J2405; J3010; J7030